=== PATIENT | female | born 1990 | race Caucasian/White ===

== ENCOUNTER 2017-11-12 11:59 | Emergency (ER) | payer MEDICAID ==
[~2017-11-12] VITALS: Ht 144.8 cm; Wt 121.6 kg
[~2017-11-12 11:59] MED LIST: ACETAMINOPHEN-1 EAC1 PO; AMOXICILLIN 50500 MG PO; ANTIVERT25 MG PO; ANXIETY; BACTRIM DS TAB1 EACH PO; BISACODYL SUPP10 MG RECTAL; CARAFATE1 GM PO; CELEXA20 MG PO; DIFLUCAN150 M1 PO; DOXYCYCLINE 10100 MG PO; IBUPROFEN 800800 M1 PO; IBUPROFEN 800800 MG PO; NOHOMEMEDICATIONS; NORCO 5-325 TA1 EACH PO; ONDANSETRON HCL4 M2 PO; PHENERGAN 25 MG25 M1 PO; PREDNISONE 20 M20 M1 PO; PREDNISONE 20 M20 MG PO; PRILOSEC 20 MG20 MG PO; PROMETHAZINE D480 ML PO; ROBAXIN500 MG PO; TESSALON PERLE100 MG PO; VENTOLIN HFA 1818 GM INH; ZOFRAN ODT4 MG PO; ZPAK PO; [UNRECOGNIZED DRUG - REMARK]
[2017-11-12] MEDS ORDERED: ACCUNEB SO1.25 MG/1 INH (12:08)
[2017-11-12] MEDS ORDERED: PREDNISONE 20 M20 M1 PO (12:43)
[2017-11-12] MEDS ORDERED: ZYRTEC 10 MG TA10 MG PO (12:43)
[2017-11-12] MEDS ORDERED: PEPCID40 MG PO (12:43)
[2017-11-12 12:48] VITALS: BP 131/92
== END 2017-11-12 12:51 | disposition home or self-care (01) ==
LOC: M.ERS 11:59
DX: T78.40XA Allergy, unspecified, initial encounter (principal); Y92.89 Other specified places as the place of occurrence of the external cause; J45.909 Unspecified asthma, uncomplicated; F41.9 Anxiety disorder, unspecified; F32.9 Major depressive disorder, single episode, unspecified; G40.909 Epilepsy, unspecified, not intractable, without status epilepticus; E66.01 Morbid (severe) obesity due to excess calories

== ENCOUNTER 2017-11-27 16:21 | Emergency (ER) | payer MEDICAID ==
[~2017-11-27] VITALS: Ht 144.8 cm; Wt 117.9 kg
[~2017-11-27 16:21] MED LIST changes: +ACCUNEB SO1.25 MG/1 INH; +PEPCID40 MG PO; +ZYRTEC 10 MG TA10 MG PO
[2017-11-27 16:48] LABS: ABSOLUTE BASOPHILS 0.1 thou/uL (0.0-0.2); ABSOLUTE EOSINOPHILS 0.2 thou/uL (0.0-0.7); ABSOLUTE LYMPHOCYTES 3.8 thou/uL (0.8-5.3); ABSOLUTE MONOCYTES 0.6 thou/uL (0.0-1.2); ABSOLUTE NEUTROPHILS 7.6 thou/uL (1.6-8.1); EOSINOPHILS 1.9 %; HEMATOCRIT 38.2 % (37.0-47.0); HEMOGLOBIN 12.9 gm/dL (12.0-15.0); MCH 23.5 pg (26.0-34.0); MCHC 33.9 g/dL (28.0-37.0); MCV 69.4 fL (80.0-100.0); MONOCYTES 4.6 %; MPV 8.3 fl. (7.2-11.1); NUCLEATED RBCS 0 /100WBC; PLATELET COUNT* 372 thou/uL (150-400); POLYS 61.5 %; RDW-CV 17.5 % (10.5-14.5); WBC 12.3 thou/uL (4.0-11.0)
[2017-11-27 17:03] LABS: CALCIUM 9.2 mg/dL (8.5-10.1); CREATININE 0.6 mg/dL (0.6-1.3); POTASSIUM 4.2 mmol/L (3.5-5.1)
[2017-11-27 17:07] LABS: ALBUMIN 2.7 g/dL (3.4-5.0); TOTAL BILIRUBIN 0.4 mg/dL (<0.1-1.0)
[2017-11-27 18:40] LABS: URINE BILIRUBIN NEGATIVE (Negative); URINE BLOOD NEGATIVE (Negative); URINE CLARITY CLEAR; URINE COLOR YELLOW; URINE GLUCOSE-RANDOM NEGATIVE (Negative); URINE KETONES NEGATIVE (Negative); URINE LEUKOCYTES TRACE (Negative); URINE NITRITE NEGATIVE (Negative); URINE PROTEIN NEGATIVE (Negative); URINE SPECIFIC GRAVITY <= 1.005 (1.005-1.030); URINE UROBILINOGEN 0.2 E.U./dl (0.2-1.0)
[2017-11-27 18:53] LABS: AMP/METHAMP Negative (Negative); BARBITURATES Negative (Negative); BENZODIAZEPINES Negative (Negative); COCAINE Negative (Negative); METHADONE Negative (Negative); OPIATES Negative (Negative); PCP Negative (Negative); THC Negative (Negative)
[2017-11-27 19:05] LABS: BACTERIA 1-9 Few /HPF (None Seen); CRYSTALS None Seen /LPF (None Seen); MUCUS None Seen strn/LPF (None Seen); SQUAMOUS >10 Many /LPF (0-3); URINE WBC 0-5 Rare /HPF (0-5)
[2017-11-27 19:06] LABS: CASTS None Seen /LPF (None Seen); URINE RBC None Seen /HPF (0-2)
[2017-11-27 20:16] VITALS: BP 136/78
--- NOTE | 2017-11-28 11:43 | EKG ---
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 : 1990 Requested By: Petra Vargas Order Number: [id number] MD: Tulio Kaur Measurements Intervals [place] Rate: 98 P: 14 W[place]: 153 QRS: 12 QRSD: 97 T: 18 QT: 370 QTc: 473 Interpretive Statements Sinus rhythm Probable left ventricular hypertrophy Compared to ECG 05/24/2016 18:03:08 Sinus tachycardia no longer present Electronically Signed On 11-28-2017 11:43:22 BANK TELLER by Tulio Kaur [email or web address] <ELECTRONICALLY SIGNED> By: Tulio Kaur MD, [facility] 11/28/17 1143 1628 27 Tulio Kaur MD, FACC /EPI
== END 2017-11-27 20:16 | disposition home or self-care (01) ==
LOC: M.ERS 16:21
PROVIDERS: Physician Assistant
DX: R07.89 Other chest pain (principal); J45.909 Unspecified asthma, uncomplicated; F41.9 Anxiety disorder, unspecified; F32.9 Major depressive disorder, single episode, unspecified; E66.01 Morbid (severe) obesity due to excess calories; Z68.43 Body mass index [BMI] 50.0-59.9, adult

== ENCOUNTER 2018-02-16 15:30 | Emergency (ER) | payer MEDICAID ==
[~2018-02-16] VITALS: Ht 144.8 cm; Wt 130.6 kg
[2018-02-16 15:37] VITALS: BP 159/105
[2018-02-16] MEDS ORDERED: VITAMIN D2000 UNIT PO (15:39)
[2018-02-16] MEDS ORDERED: ROBAXIN 750 MG750 M1 PO (15:59)
[2018-02-16] MEDS ORDERED: NAPROSYN500 MG PO (16:01)
== END 2018-02-16 16:24 | disposition home or self-care (01) ==
LOC: M.ERS 15:30
DX: M54.2 Cervicalgia (principal); J45.909 Unspecified asthma, uncomplicated; F41.9 Anxiety disorder, unspecified; F32.9 Major depressive disorder, single episode, unspecified; G40.909 Epilepsy, unspecified, not intractable, without status epilepticus

== ENCOUNTER 2018-05-22 15:17 | Emergency (ER) | payer MEDICAID ==
[~2018-05-22] VITALS: Ht 144.8 cm; Wt 81.2 kg
[~2018-05-22 15:17] MED LIST changes: +NAPROSYN500 MG PO; +ROBAXIN 750 MG750 M1 PO; +VITAMIN D2000 UNIT PO
[2018-05-22 16:11] VITALS: BP 154/101
== END 2018-05-22 16:11 | disposition home or self-care (01) ==
LOC: M.ERS 15:17
DX: S63.8X2A Sprain of other part of left wrist and hand, initial encounter (principal); J45.909 Unspecified asthma, uncomplicated; F41.9 Anxiety disorder, unspecified; G40.909 Epilepsy, unspecified, not intractable, without status epilepticus; E66.01 Morbid (severe) obesity due to excess calories; Z68.38 Body mass index [BMI] 38.0-38.9, adult; W22.8XXA Striking against or struck by other objects, initial encounter; Y93.89 Activity, other specified; Y92.89 Other specified places as the place of occurrence of the external cause; Y99.8 Other external cause status

== ENCOUNTER 2018-12-18 15:58 | Emergency (ER) | payer MEDICAID ==
[~2018-12-18] VITALS: Ht 144.8 cm; Wt 113.0 kg
[2018-12-18] MEDS ORDERED: NABUMETONE 750750 M1 PO (17:01)
[2018-12-18 17:15] VITALS: BP 140/82
== END 2018-12-18 17:16 | disposition home or self-care (01) ==
LOC: M.ERS 15:58
DX: S90.32XA Contusion of left foot, initial encounter (principal); J45.909 Unspecified asthma, uncomplicated; F41.9 Anxiety disorder, unspecified; F32.9 Major depressive disorder, single episode, unspecified; E66.01 Morbid (severe) obesity due to excess calories; Z68.43 Body mass index [BMI] 50.0-59.9, adult; X50.9XXA Other and unspecified overexertion or strenuous movements or postures, initial encounter; Y93.89 Activity, other specified; Y92.89 Other specified places as the place of occurrence of the external cause; Y99.8 Other external cause status

== ENCOUNTER 2020-03-16 10:25 | Emergency (ER) | payer MEDICAID ==
[~2020-03-16] VITALS: Ht 144.8 cm; Wt 99.8 kg
[~2020-03-16 10:25] MED LIST changes: +NABUMETONE 750750 M1 PO
[2020-03-16] MEDS ORDERED: NORCO 5-325 TA1 EAC1 PO (11:28)
[2020-03-16] MEDS ORDERED: PREDNISONE 20 M20 M1 PO (11:28)
[2020-03-16 11:40] VITALS: BP 140/74
== END 2020-03-16 11:40 | disposition home or self-care (01) ==
LOC: M.ERS 10:25
DX: M25.431 Effusion, right wrist (principal); M25.531 Pain in right wrist; J45.909 Unspecified asthma, uncomplicated; E66.01 Morbid (severe) obesity due to excess calories; Z68.42 Body mass index [BMI] 45.0-49.9, adult; Z88.0 Allergy status to penicillin